=== PATIENT | male | born 1955 | race Caucasian/White ===

== ENCOUNTER 2020-05-26 09:37 | Day surgery (SDC) | payer MEDICARE, BC ==
[~2020-05-26 09:37] MED LIST: Lactated Ringers 1,000 ML IV SCH; Midazolam 1 MG/ML 2 ML SDV ONE; Propofol 200 MG/20 ML SDV ONE; Sodium Chloride 0.9% 10 ML Syringe FLUSH PRN
[2020-05-26] MEDS ORDERED: Propofol 200 MG/20 ML SDV ONE (10:52)
[2020-05-26] MEDS ORDERED: Midazolam 1 MG/ML 2 ML SDV ONE (10:52)
--- NOTE | 2020-05-26 10:54 | PCM.PN ---
- General Info Date of Service: 05/26/20 - Review of Systems Systems Review Comment:: 64-year-old male referred for colonoscopy for colon cancer screening. It has been several years since his last colonoscopy. He denies any recent change in bowel pattern. He is medically stable to proceed today. His recent history and physical is reviewed and no significant changes are noted. I have discussed the proposed colonoscopy with the patient. Risks such as but not limited to bleeding and GI injury reviewed. He agrees to proceed. - Patient Data Vitals - Most Recent: Last Vital Signs Temp 98.7 F 05/26/20 10:11 Pulse 81 05/26/20 10:11 Resp 18 05/26/20 10:11 BP 140/96 H 05/26/20 10:11 Pulse Ox 100 05/26/20 10:11 Weight - Most Recent: 113.398 kg Med Orders - Current: Current Medications Lactated Ringer's (Ringers, Lactated) 1,000 mls @ 125 mls/hr IV ASDIRECTED WAI Last Admin: 05/26/20 10:27 Dose: 125 mls/hr Documented by: Sodium Chloride (Sodium Chloride 0.9% 10 Ml Syringe) 10 ml FLUSH ASDIRECTED PRN PRN Reason: Keep Vein Open Discontinued Medications Midazolam HCl (Midazolam 1 Mg/Ml 2 Ml Sdv) Confirm Administered Dose 2 mg .ROUTE .STK-MED ONE Stop: 05/26/20 08:40 Propofol (Propofol 200 Mg/20 Ml Sdv) Confirm Administered Dose 400 mg .ROUTE .STK-MED ONE Stop: 05/26/20 08:40 Sepsis Event Note - Focused Exam Vital Signs: Vital Signs Temp Pulse Resp BP Pulse Ox 05/26/20 10:11 98.7 F 81 18 140/96 H 100 - Problem List Review Problem List Initiated/Reviewed/Updated: Yes - Assessment Assessment:: Colon cancer screening - Plan Plan:: Colonoscopy
--- NOTE | 2020-05-26 11:28 | PCM.OPNOTE ---
- General Post-Op/Procedure Note Date of Surgery/Procedure: 05/26/20 Operative Procedure(s): Colonoscopy with polypectomy Findings: Small splenic flexure polyp Colon otherwise normal Pre Op Diagnosis: Colon cancer screening Post-Op Diagnosis: Colon polyp Anesthesia Technique: MAC Primary Surgeon: Nadir Munoz Pathology: Colon polyp EBL in mLs: 0 Complications: None Condition: Good
--- NOTE | 2020-05-26 12:12 | OR ---
Date of Procedure: 05/26/2020 PREOPERATIVE DIAGNOSIS: Colon cancer screening. POSTOPERATIVE DIAGNOSIS: Colon polyp. OPERATIONS PERFORMED: Colonoscopy with polypectomy. INDICATIONS FOR SURGERY: This 64-year-old male seen today for screening colonoscopy. FINDINGS: A single polyp was noted on today's exam. This was at the level of the splenic flexure and is 7 mm in diameter and sessile in configuration. The colon, otherwise, appears normal. DESCRIPTION OF PROCEDURE: The patient was taken to the operating room. He was given intravenous sedation, and with him in the left lateral decubitus position, digital rectal exam was performed showing no rectal masses. The Olympus colonoscope was inserted into the rectum. Retroflexed examination of the rectal canal was performed. The scope was then carefully advanced under direct visualization through the entire length of the colon until the cecum was reached. Cecal acquisition was confirmed by noting the normal internal cecal anatomy including the appendiceal orifice and the ileocecal valve. The light was also noted to transilluminate the abdominal wall in the right lower quadrant. The ileocecal valve was cannulated and the terminal ileum examined and appeared normal. The scope was then slowly withdrawn sequentially re- examining the colonic segments. At the level of the splenic flexure, a small colon polyp was identified. This was removed with a cautery snare and retrieved into a polyp trap. Examination was then completed, and with no sign of any complication, the scope was removed, and the patient was taken from the operating room in satisfactory condition. ESTIMATED BLOOD LOSS: 0. COMPLICATIONS: None. PROGNOSIS: Good. ANA Munoz MD /[id number]
[2020-05-26 15:25] VITALS: BP 147/89; PULSE 69
== END 2020-05-26 12:27 | disposition home or self-care (01) ==
LOC: LL.SDS 09:37
PROVIDERS: ATTEND Surgery
DX: Z12.11 Encounter for screening for malignant neoplasm of colon (principal); D12.3 Benign neoplasm of transverse colon; J44.1 Chronic obstructive pulmonary disease with (acute) exacerbation; F41.9 Anxiety disorder, unspecified; Z88.0 Allergy status to penicillin; Z91.040 Latex allergy status; Z79.899 Other long term (current) drug therapy; Z01.812 Encounter for preprocedural laboratory examination; Z20.822 Contact with and (suspected) exposure to COVID-19
CPT/HCPCS: 00812; 88305; J2250; J2704; J7120; U0002

== ENCOUNTER 2020-08-23 15:19 | Emergency (ER) | payer MEDICARE, BC ==
[2020-08-23 15:26] VITALS: BP 156/104; PULSE 95
--- NOTE | 2020-08-23 16:41 | EDM.PDOC ---
ED HPI GENERAL MEDICAL PROBLEM - General Chief Complaint: Back Pain or Injury Stated Complaint: neck pain Time Seen by Provider: 08/23/20 15:42 Source of Information: Reports: Patient History Limitations: Reports: No Limitations - History of Present Illness INITIAL COMMENTS - FREE TEXT/NARRATIVE: Pt. presents to severe neck pain. Pt. states that he has had intermittent neck pain for years and had a history of cervical arthritis. He states that it occasionally flares up, particularly with activity. Typically he sees chiropractic with good results. Pt. states that the discomfort started several days ago after doing strenuous activity. Pt. states that the discomfort is located only in his neck, R worse than L. Pt. states that he is barely able to turn his neck. He states that he has been taking cyclobenzaprine (last time was yesterday) but hasn't been taking it consistently. Pt. denies any trauma to the area. No recent falls or accidents; pt. states that the discomfort started with recent atraumatic activity. Pt. denies any chest pain. No arm pain. No jaw, anterior neck pain. Denies any diaphoresis. No nausea or vomiting. Pt. states that he has not been able to sleep and is requesting medication to help with this. Onset: Today Onset Date: 08/23/20 Location: Reports: Neck Quality: Reports: Throbbing Bilateral Neck Pain Score (Numeric/FACES): 7 - Related Data Allergies Allergy/AdvReac Type Severity Reaction Status Date / Time codeine Allergy Unknown UNKNOWN Verified 05/26/20 10:23 Latex, Natural Rubber Allergy Swelling Verified 05/26/20 10:23 Penicillins Allergy Dizziness Verified 05/26/20 10:23 Home Meds: Home Meds Albuterol [Ventolin HFA] 2 puff PO Q6H PRN 03/11/14 [History] LORazepam 1 mg PO TID 07/27/15 [History] Budesonide/Formoterol Fumarate [Budesonide-Formoterol 160-4.5] 4.5 mcg IH BID 05/25/20 [History] Cyclobenzaprine [Flexeril] 10 mg PO BID PRN 05/25/20 [History] Meloxicam [Mobic] 15 mg PO DAILY PRN 05/25/20 [History] Venlafaxine HCl [Venlafaxine ER] 150 mg PO DAILY 05/25/20 [History] Omeprazole 20 mg PO DAILY 05/26/20 [History] Cyclobenzaprine [Flexeril] 10 mg PO TID PRN 10 Days #30 tab 08/23/20 [Rx] Past Medical History HEENT History: Reports: Hard of Hearing, Other (See Below) Other HEENT History: Has bilateral hearing aides. Has partial dentures Cardiovascular History: Reports: Hypertension Other Cardiovascular History: vertebral artery stenosis Respiratory History: Reports: COPD Other Gastrointestinal History: heartburn-takes "something" daily for prevention Musculoskeletal History: Reports: Amputation, Back Pain, Chronic Other Musculoskeletal History: muscle spasm, amputation of finger tip Psychiatric History: Reports: Anxiety Other Psychiatric History: Has been on lorazepam TID for anxiety for 'almost 20 years'; also on Effexor Other Dermatologic History: varicose veins - Past Surgical History Musculoskeletal Surgical History: Reports: Other (See Below) Other Musculoskeletal Surgeries/Procedures:: diskectomy Social & Family History - Family History Family Medical History: No Pertinent Family History - Tobacco Use Tobacco Use Status *Q: Never Tobacco User Second Hand Smoke Exposure: No - Caffeine Use Caffeine Use: Reports: Coffee - Alcohol Use Days Per Week of Alcohol Use: 3 Number of Drinks Per Day: 1 Total Drinks Per Week: 3 - Recreational Drug Use Recreational Drug Use: No - Living Situation & Occupation Living situation: Reports: , with Significant Other Occupation: Employed ED ROS GENERAL - Review of Systems Review Of Systems: Comprehensive ROS is negative, except as noted in HPI. ED EXAM, GENERAL - Physical Exam Exam: See Below Exam Limited By: No Limitations General Appearance: Alert, WD/WN, No Apparent Distress Neck: Normal Inspection, Tender Lateral, Other (cervical muscle spasm. No obvious stepoffs noted. CMS intact. ) Neurological: Alert, Oriented, CN II-XII Intact, Normal Cognition, Normal Gait, Normal Reflexes, No Motor/Sensory Deficits, Other (5/5 strength in hands/upper extremities. No paresthesias.) Course - Vital Signs Last Recorded V/S: Last Vital Signs Temp 37.4 C 08/23/20 15:25 Pulse 95 08/23/20 15:25 Resp 18 08/23/20 15:25 BP 156/104 H 08/23/20 15:25 Pulse Ox 98 08/23/20 15:25 Departure - Departure Time of Disposition: 16:00 Disposition: Home, Self-Care 01 Clinical Impression: Torticollis - Discharge Information Prescriptions: Cyclobenzaprine [Flexeril] 10 mg PO TID PRN 10 Days #30 tab PRN Reason: Pain Instructions: Acute Torticollis, Adult Referrals: Radhika Aldridge PA [Primary Care Provider] - Forms: ED Department Discharge Additional Instructions: cyclobenzaprine 10mg 1 three times daily as needed for spasm [place] 5/325mg 1 every 6 hours as needed for pain Continue with your other medications Follow-up with chiropractic as you planned. Sepsis Event Note (ED) - Evaluation Sepsis Screening Result: No Definite Risk - Focused Exam Vital Signs: Vital Signs Temp Pulse Resp BP Pulse Ox 08/23/20 15:25 37.4 C 95 18 156/104 H 98 - Assessment/Plan Plan: cyclobenzaprine 10mg 1 three times daily as needed for spasm [place] 5/325mg 1 every 6 hours as needed for pain Continue with your other medications Follow-up with chiropractic as you planned.
== END 2020-08-23 15:51 | disposition home or self-care (01) ==
LOC: LL.ED 15:19
DX: M43.6 Torticollis (principal); I10 Essential (primary) hypertension; J44.9 Chronic obstructive pulmonary disease, unspecified; Z88.0 Allergy status to penicillin; Z88.5 Allergy status to narcotic agent; Z91.040 Latex allergy status
CPT/HCPCS: 99283